=== PATIENT | female | born 1990 | race African-American/Black ===

== ENCOUNTER → 2017-01-02 | Outpatient (CLI) | payer BC ==
[~2017-01-02] MED LIST: LEXAPRO20 MG PO; WAL-PROFEN200 M1 PO
== END | disposition home or self-care (01) ==
LOC: CBAR 14:00
DX: Z01.818 Encounter for other preprocedural examination (principal); E66.01 Morbid (severe) obesity due to excess calories
CPT/HCPCS: G0463

== ENCOUNTER → 2017-03-16 | Outpatient (CLI) | payer BC ==
--- NOTE | ~2017-03-16 | CR97 ---
[facility] A Service of [facility] RADIOLOGY TEXT RESULTS PATIENT: DEMIAN MARCOS I LOCATION: [facility] : [birth year] UNIT #: [id number] AGE: [address]: Aydin Shelton MD SEX: F ORDER DR: [id number] [place] [id number] [facility]. [place], [place] [address] [id number] O MR#: [id number] Acc #: [id number] NAME: DEMIAN MARCOS I. : 1990 SEX: F STUDY DATE/TIME: 03/16/2017 8:28 UNIT: [facility] ROOM: STUDY DESCRIPTION: CR Esophagram Attending Physician: Aydin Shelton M.D. Referring Physician: Aydin Shelton M.D. Ordering Physician: Aydin Shelton M.D. Primary Care Physician: Jovan Becker M.D. MEDICAL IMAGING REPORT This report is preliminary unless electronic signature is present EXAM Single contrast barium esophagram INDICATION Preoperative examination prior to laparoscopic gastric banding surgery, as well as shortness of breath with activity. TECHNIQUE Patient was administered thin barium and 12 fluoroscopic images were obtained. FINDINGS Thoracic esophagus is of normal caliber. There is no evidence of stricture or mass lesion. Esophageal motility appears within normal limits. No reflux was seen. Total fluoroscopy time was 0.3 minutes. A total of 12 fluoroscopic images were obtained. IMPRESSION Normal single contrast barium esophagram. STAT * RESULT Dictated by... Trinh Hannon M.D. THIS IS AN ELECTRONICALLY VERIFIED REPORT Trinh Hannon M.D. at 03/19/2017 5:03 PM AFF/aa TD: 03/19/2017 09:34 JOB #: [id number] [facility] A Service of [facility] RADIOLOGY TEXT RESULTS PATIENT: DEMIAN MARCOS I LOCATION: [facility] #: [id number] : [birth year] UNIT #: [id number] AGE: [address]: Aydin Shelton MD SEX: F ORDER DR: MEDICAL IMAGING REPORT Page 1 of 1 COPY
--- NOTE | ~2017-03-16 | EKG ---
PATIENT: DEMIAN MARCOS UNIT #: [id number] Ventricular Rate: 91 BPM Atrial Rate: 91 BPM P-R Interval: 128 ms QRS Duration: 76 ms Q-T Interval: 388 ms QTC Calculation(Bezet): 477 ms P Alpine: 61 degrees Calculated R Alpine: 49 degrees Calculated T Alpine: 23 degrees Diagnosis Line: Normal sinus rhythm Diagnosis Line: Possible Left atrial enlargement Diagnosis Line: Borderline ECG Diagnosis Line: No previous ECGs available Diagnosis Line: Confirmed by RITA GREEN MD ([id number]) on Diagnosis Line: 03/16/2017 2:46:47 PM INTERPRETING MD: PETER OWENS
--- NOTE | ~2017-03-16 | CR63 ---
[facility] A Service of [facility] & [facility] RADIOLOGY TEXT RESULTS PATIENT: DEMIAN MARCOS I LOCATION: [facility] : [birth year] UNIT #: [id number] AGE: [address]: Aydin Shelton MD SEX: F ORDER DR: [id number] [facility] [address] [place], [place] [address] [id number] O MR#: [id number] Acc #: [id number] NAME: DEMIAN MARCOS I. : 1990 SEX: F STUDY DATE/TIME: 03/16/2017 8:13 UNIT: [facility] ROOM: STUDY DESCRIPTION: CR Chest 2 View Attending Physician: Aydin Shelton M.D. Referring Physician: Aydin Shelton M.D. Ordering Physician: Aydin Shelton M.D. Primary Care Physician: Jovan Becker M.D. MEDICAL IMAGING REPORT This report is preliminary unless electronic signature is present EXAM Chest, 03/16/2017, [facility]. HISTORY 26-year-old woman. Preop clearance for laparoscopic adjustable gastric band placement and possible paraesophageal hernia repair. Morbid obesity. COMPARISON None. FINDINGS Two-view chest demonstrates normal cardiac size and configuration. Hilar structures and mediastinal contours are preserved. Bilateral lungs are expanded and clear. Costophrenic angles are clear. Bony thorax is normal. Morbid obesity noted. IMPRESSION Negative chest. Dictated by... Saroj Palumbo M.D. THIS IS AN ELECTRONICALLY VERIFIED REPORT Saroj Palumbo M.D. at 03/16/2017 1:33 PM FAYE/simeon TD: 03/16/2017 12:35 JOB #: [id number] MEDICAL IMAGING REPORT Page 1 of 1 COPY
[2017-03-16 09:49] LABS: HEMATOCRIT 40.9 % (35.0-45.0); HEMOGLOBIN 13.5 gm/dL (12.0-16.0); MEAN CELL VOLUME 82.8 FL (83-96); MEAN CORPUSCULAR HEMOGLOBIN 27.4 PG (28-34); MEAN CORPUSCULAR HGB CONC 33.1 g/dL (30-36); MEAN PLATELET VOLUME 7.2 FL (6.5-11.5); RED BLOOD COUNT 4.93 X10e (3.90-5.30); RED CELL DISTRIBUTION WIDTH 14.3 % (11.0-15.5); WHITE BLOOD COUNT 10.2 X10e3 (4.0-10.5)
[2017-03-16 10:33] LABS: ALBUMIN SERUM 4.3 g/dL (3.5-5.0); BILIRUBIN,TOTAL 0.5 mg/dL (0.2-2.0); BUN/CREATININE RATIO 13.33; CALCIUM SERUM 9.5 mg/dL (8.4-10.2); CREATININE SERUM 0.9 mg/dL (0.6-1.4); GLOM FILT RATE Estimated 100.9 mL/min (>60); POTASSIUM 4.2 mmol/L (3.5-5.1); PROTEIN TOTAL SERUM 7.5 g/dL (6.0-8.3)
== END | disposition home or self-care (01) ==
LOC: CRAD 07:51 → CAMB 08:30
PROVIDERS: Surgery
DX: Z01.818 Encounter for other preprocedural examination (principal)
CPT/HCPCS: 36415; 71020; 74220; 80053; 80061; 84443; 85027; 93005

== ENCOUNTER → 2017-03-28 | Day surgery (SDC) | payer BC ==
--- NOTE | ~2017-03-28 | OR ---
Unit #: [id number] #: [id number] Patient: DEMIAN MARCOS [id number] [address] [place], [place] [address] [id number] O MR#: [id number] NAME: DEMIAN MARCOS ROOM: Date of Procedure: 03/28/2017 Admission Date: 03/28/2017 Surgeon: Aydin Shelton M.D. : 1990 Attending Physician: Aydin Shelton M.D. Primary Care Physician: Jovan Becker M.D. OPERATIVE REPORT PREOPERATIVE DIAGNOSIS Chronic morbid obesity, body mass index of 41. POSTOPERATIVE DIAGNOSES 1. Chronic morbid obesity, body mass index of 41. 2. Paraesophageal hiatal hernia. PROCEDURE PERFORMED 1. Laparoscopic adjustable gastric band. 2. Laparoscopic paraesophageal hiatal hernia repair. ASSISTANT Darin Izquierdo M.D. ANESTHESIA General anesthesia. ESTIMATED BLOOD LOSS Minimal. IV FLUIDS 800 crystalloid. COMPLICATIONS None. INDICATIONS FOR PROCEDURE The patient is a 26-year-old with chronic morbid obesity. DESCRIPTION OF PROCEDURE The patient was taken to the operating room and placed in supine position. General anesthesia was induced. The abdomen was prepped and draped. A 3-cm incision was then made left of the midline. A 10-mm Visiport was then placed intraabdominal under direct vision. The abdomen was insufflated to 15 mmHg with CO2. The patient was then placed in a steep reversed Trendelenburg. General inspection of the abdomen revealed what appeared to be a paraesophageal hernia. This was identified with a defect at the diaphragm using anterior palpation with the instrument. We then made a small incision in the subxiphoid region. A Anu liver retractor was then placed intraabdominal and used to retract the left lobe of the liver upward to further expose the paraesophageal hernia and GE junction. I then placed a 5-mm port in the right upper quadrant, a 10-mm Unit #: [id number] #: [id number] Patient: DEMIAN MARCOS port in the left upper quadrant, and another 5-mm port in the left lower quadrant. The stomach was retracted medial and downward. Upon retracting the stomach, we took down the paraesophageal ligament, exposing the right and left axel at the paraesophageal hernia. Any hernia sac was reduced. We then repaired the paraesophageal hernia using interrupted #0 Ethibond sutures in a brkgfw-qu-ywpin type fashion. This formed a snug repair to the anterior esophagus. We then retracted the stomach medially and further exposed the angle of His using Bovie electrocautery. The stomach was then retracted laterally. We then took down the hepatogastric ligament with Bovie electrocautery. This exposed the right axel. Using blunt dissection, I created a retrogastric tunnel from this point to the angle of His. The band was then placed intraabdominal through the 10-mm port site. This was then brought through the retrogastric tunnel in a pars flaccida technique. The band was then closed anteriorly to form a 20-mL to 25-mL anterior gastric pouch. The fundus was then secured to the anterior pouch to prevent movement around the stomach using two interrupted #0 Ethibond sutures. A third suture was then used as a gathering stitch from the lesser curve to the anterior stomach, gathering and imbricating the remaining fundus of the stomach. The tubing was then brought out through the midline 10-mm port site. All ports and the Anu liver retractor were removed under direct vision with no evidence of abdominal hemorrhage. A polypropylene mesh was then secured to the posterior face of the laparoscopic band port. This was secured using #0 Ethibond suture. This was then cut to shape. The port was then connected to the tubing and placed into a subcutaneous pocket just anterior to the rectus sheath. Its position was then confirmed. All tubing was then placed intraabdominal. The wounds were then closed with interrupted 4-0 Vicryl. The patient tolerated the procedure well and was sent to the recovery room in good condition. Dictated by... Migel Chambers/hugh TD: 03/28/2017 14:20 JOB #: [id number] OPERATIVE REPORT Page 1 of 1 X Aydin Shelton MD X PROCEDURE OPERATIVE NOTE
--- NOTE | ~2017-03-28 | CR7 ---
[facility] A Service of [facility] RADIOLOGY TEXT RESULTS PATIENT: DEMIAN MARCOS LOCATION: [facility] : [birth year] UNIT #: [id number] AGE: [address]: Aydin Shelton MD SEX: F ORDER DR: [id number] [facility] [address] [place], [place] [address] [id number] O MR#: [id number] Acc #: [id number] NAME: DEMIAN MARCOS : 1990 SEX: F STUDY DATE/TIME: 03/28/2017 8:25 UNIT: [facility] ROOM: STUDY DESCRIPTION: CR Abdomen Single AP View Attending Physician: Aydin Shelton M.D. Ordering Physician: Aydin Shelton M.D. Primary Care Physician: Jovan Becker M.D. MEDICAL IMAGING REPORT This report is preliminary unless electronic signature is present EXAM KUB INDICATIONS Gastric band placement. Morbid obesity. FINDINGS Supine view of the abdomen was obtained. Gastric band is present with a phi angle of 56 degrees. Port is in the left lower quadrant. Bowel gas pattern normal. IMPRESSION Gastric band in place with a phi angle of 56 degrees. Dictated by... Jared Valencia Jr., M.D. THIS IS AN ELECTRONICALLY VERIFIED REPORT Jared Valencia Jr., M.D. at 03/28/2017 4:45 PM MARCO/sosa TD: 03/28/2017 13:27 JOB #: [id number] MEDICAL IMAGING REPORT Page 1 of 1 COPY
== END | disposition home or self-care (01) ==
LOC: CSUR 05:33
DX: E66.01 Morbid (severe) obesity due to excess calories (principal); K44.9 Diaphragmatic hernia without obstruction or gangrene; K21.9 Gastro-esophageal reflux disease without esophagitis; E78.00 Pure hypercholesterolemia, unspecified; Z72.4 Inappropriate diet and eating habits; Z68.41 Body mass index [BMI] 40.0-44.9, adult; Z87.440 Personal history of urinary (tract) infections; Z87.891 Personal history of nicotine dependence; Z88.5 Allergy status to narcotic agent; Z79.1 Long term (current) use of non-steroidal anti-inflammatories (NSAID); Z79.899 Other long term (current) drug therapy; Z98.818 Other dental procedure status; Z98.890 Other specified postprocedural states
CPT/HCPCS: 74000; 84703; C1781; J0330; J0690; J1650; J1885; J2250; J2405; J2710; J3010